=== PATIENT | female | born 1990 | race Two or more races ===

== ENCOUNTER 2025-03-25 17:52 | Emergency (ER) | payer OTHER ==
[~2025-03-25] VITALS: Ht 154.9 cm; Wt 61.7 kg
[2025-03-25 19:37] LABS: BASO % 0.4 % (0.1-1.2); EOS # 0.06 (0.04-0.54); EOS % 0.7 % (0.7-7.0); LYMPH # 2.22 (1.18-3.74); LYMPH % 27.3 % (19.3-53.1); MEAN PLATELET VOLUME 10.20 fl (9.4-12.4); MONO # 0.57 (0.24-0.82); MONO % 7.0 % (4.7-12.5); NEUT # 5.23 (1.56-6.13); NEUT % 64.4 % (34.0-71.1); RED CELL DISTRIBUTION WIDTH 13.8 % (11.6-14.4)
[2025-03-25 19:52] LABS: URINE APPEARANCE Clear; URINE BILIRRUBIN Negative (NEGATIVE); URINE BLOOD Negative; URINE COLOR Yellow; URINE GLUCOSE Negative (NEGATIVE); URINE KETONE 15 (NEGATIVE); URINE LEUKOCYTE Small; URINE NITRATE Negative; URINE PROTEIN Negative (NEGATIVE); URINE UROBILINOGEN 0.2 E.U./dl
[2025-03-25 19:53] LABS: URINE BACTERIA 1283.7 uL (0.0-1933); URINE EPITHELIAL CELLS 43.9 uL (0.0-38.8); URINE RBC 9.2 uL (0.0-20.8); URINE WBC 41.6 uL (0.0-23.2)
[2025-03-25 19:58] LABS: URINE CAST 0.58 uL (0.0-1.40)
[2025-03-25] MEDS ORDERED: CEFTRIAXONE SODIUM 1,000 MG VIAL IM ONE (22:00)
[2025-03-25] MEDS ORDERED: CEPHALEXIN500 M1 PO (22:00)
== END 2025-03-25 22:31 | disposition home or self-care (01) ==
LOC: ER 17:52
PROVIDERS: General Practice
DX: O26.899 Other specified pregnancy related conditions, unspecified trimester (principal); N39.0 Urinary tract infection, site not specified; R10.2 Pelvic and perineal pain; Z3A.18 18 weeks gestation of pregnancy

== ENCOUNTER 2025-07-23 16:40 | Outpatient (CLI) | payer OTHER ==
[~2025-07-23] VITALS: Ht 152.4 cm; Wt 73.9 kg
[2025-07-23 15:32] VITALS: BP 108/69
[~2025-07-23 16:40] MED LIST: CEPHALEXIN500 M1 PO; IRON236 MG; IRON236 MG PO; PRENATA CHEWAB1 EACH PO
[2025-07-23 19:54] VITALS: BP 108/69
[2025-07-23 20:30] VITALS: BP 112/72
== END 2025-07-24 08:11 | disposition home or self-care (01) ==
LOC: OBS/DEL 16:40 → LDR 16:40 → OBS/DEL 07-24 08:11 → EDSTATUS 08-01 10:23
PROVIDERS: ATTEND Specialist
DX: O36.8130 Decreased fetal movements, third trimester, not applicable or unspecified (principal); Z3A.35 35 weeks gestation of pregnancy

== ENCOUNTER 2025-08-11 18:17 | Outpatient (CLI) | payer OTHER ==
[~2025-08-11] VITALS: Ht 154.9 cm; Wt 76.2 kg
[2025-08-11 17:47] VITALS: BP 111/55
[2025-08-11] MEDS ORDERED: RINGERS SOLUTION,LACTATED 1,000 ML IV SCH (19:15)
[2025-08-11 20:28] LABS: BASO % 0.3 % (0.1-1.2); EOS # 0.03 (0.04-0.54); EOS % 0.5 % (0.7-7.0); LYMPH # 2.04 (1.18-3.74); LYMPH % 31.8 % (19.3-53.1); MEAN PLATELET VOLUME 10.30 fl (9.4-12.4); MONO # 0.56 (0.24-0.82); MONO % 8.7 % (4.7-12.5); NEUT # 3.74 (1.56-6.13); NEUT % 58.4 % (34.0-71.1); RED CELL DISTRIBUTION WIDTH 12.7 % (11.6-14.4)
[2025-08-11 20:29] LABS: URINE APPEARANCE Clear; URINE BILIRRUBIN Negative (NEGATIVE); URINE BLOOD Negative; URINE COLOR Yellow; URINE GLUCOSE Negative (NEGATIVE); URINE KETONE Negative (NEGATIVE); URINE LEUKOCYTE Negative; URINE NITRATE Negative; URINE PROTEIN Negative (NEGATIVE); URINE UROBILINOGEN 0.2 E.U./dl
[2025-08-11 20:32] LABS: URINE BACTERIA 135.5 uL (0.0-1933); URINE EPITHELIAL CELLS 21.5 uL (0.0-38.8); URINE RBC 3.6 uL (0.0-20.8); URINE WBC 6.1 uL (0.0-23.2)
[2025-08-11 20:38] LABS: URINE CAST 0.14 uL (0.0-1.40)
[2025-08-11 20:52] LABS: INR 0.95
[2025-08-11 21:07] LABS: ALT/SGPT 24.0 U/L (12-78); AST/SGOT 21.0 U/L (15-37); BILIRUBIN TOTAL 0.35 mg/dL (0.3-1.2); BUN CREA RATIO 9.0 (7.0-25.0); CREATININE SERUM 0.66 mg/dL (0.55-1.02); GFR 103.78; GLOBULINA 3.3 G/DL (2.4-3.5); GLUCOSE FASTING 84.0 mg/dL (65-100); OSMOLALITY SERUM 276.0 MOSM/KG (275-295)
[2025-08-11 23:31] VITALS: BP 95/56
[2025-08-12 03:24] VITALS: BP 105/56
[2025-08-12 07:45] VITALS: BP 105/65
[2025-08-12 13:20] VITALS: BP 105/65
== END 2025-08-12 13:20 | disposition home or self-care (01) ==
LOC: OBS/DEL 18:17
PROVIDERS: ATTEND Specialist
DX: O26.893 Other specified pregnancy related conditions, third trimester (principal); R10.20 Pelvic and perineal pain unspecified side; O26.843 Uterine size-date discrepancy, third trimester; O36.8130 Decreased fetal movements, third trimester, not applicable or unspecified; Z3A.36 36 weeks gestation of pregnancy